=== PATIENT | female | born 1980 | race Caucasian/White ===

== ENCOUNTER 2017-07-19 07:43 | Outpatient (CLI) | payer OTHER ==
[2017-07-19 08:27] LABS: BASOPHILS % (AUTO) 0.5 %; EOSINOPHILS # (AUTO) 0.2 10^3/uL (0.0-0.7); EOSINOPHILS % (AUTO) 3.6 %; HCT - HEMATOCRIT 35.3 % (37.0-47.0); HGB - HEMOGLOBIN 12.2 g/dL (12.0-16.0); LYMPHOCYTES # (AUTO) 1.6 10^3/uL (1.5-3.5); LYMPHOCYTES % (AUTO) 27.1 %; MEAN CORPUSCULAR HEMOGLOBIN 30.8 pg (27.0-31.0); MEAN CORPUSCULAR HGB CONC 34.6 g/dL (32.0-36.0); MEAN CORPUSCULAR VOLUME 89.1 fL (81.0-99.0); MEAN PLATELET VOLUME 7.6 fL (7.9-10.8); MONOCYTES # (AUTO) 0.6 10^3/uL (0.0-1.0); MONOCYTES % (AUTO) 10.4 %; NEUTROPHILS # (AUTO) 3.4 10^3/uL (1.5-6.6); NEUTROPHILS % (AUTO) 58.4 %; RED BLOOD COUNT 3.97 10^6/uL (4.20-5.40); UNCORRECTED WHITE BLOOD COUNT 5.9 x10^3/uL; WHITE BLOOD COUNT 5.9 x10^3/uL (4.8-10.8)
[2017-07-19 10:16] LABS: ALBUMIN/GLOBULIN RATIO 1.4 (1.0-2.2); BILIRUBIN,TOTAL 0.5 mg/dL (0.2-1.0); BUN - BLOOD UREA NITROGEN 15 mg/dL (6-20); CALCIUM 9.3 mg/dL (8.5-10.3); CARBON DIOXIDE - CO2 24 mmol/L (21-32); CHLORIDE 103 mmol/L (101-111); CHOL/HDL RATIO 2.2 (<4.4); CHOLESTEROL 167 mg/dL; GFR - MDRD 62 (>89); GLUCOSE 103 mg/dL (70-100); HDL CHOLESTEROL 75 mg/dL; POTASSIUM 3.7 mmol/L (3.5-5.0); SODIUM 137 mmol/L (135-145); TOTAL PROTEIN 7.4 g/dL (6.7-8.2); TRIGLYCERIDES 83 mg/dL; VLDL CHOLESTEROL 17 mg/dL
== END 2017-07-19 07:44 | disposition home or self-care (01) ==
LOC: LAB 07:43
PROVIDERS: ATTEND Family Medicine
DX: Z00.00 Encounter for general adult medical examination without abnormal findings (principal)
CPT/HCPCS: 36415; 80053; 80061; 84443; 85025

== ENCOUNTER 2017-10-04 14:50 | Outpatient (CLI) | payer OTHER | END 2017-10-04 14:51 | disposition home or self-care (01) | LOC: LAB.WCP 14:50 | PROVIDERS: ATTEND Family Medicine | DX: B97.89 Other viral agents as the cause of diseases classified elsewhere (principal) | CPT/HCPCS: 87275; 87276 ==

== ENCOUNTER 2018-02-07 11:42 | Emergency (ER) | payer OTHER ==
[2018-02-07 12:16] LABS: BILIRUBIN,URINE NEGATIVE (NEGATIVE); GLUCOSE, URINE (UA) NEGATIVE (NEGATIVE); KETONES,URINE (UA) NEGATIVE (NEGATIVE); LEUKOCYTE ESTERASE, URINE NEGATIVE (NEGATIVE); NITRITE,URINE NEGATIVE (NEGATIVE); OCCULT BLOOD,URINE NEGATIVE (NEGATIVE); PROTEIN,URINE NEGATIVE (NEGATIVE); UROBILINOGEN,URINE 0.2 (NORMAL) E.U./dL (NORMAL)
[2018-02-07 12:17] LABS: CLARITY,URINE CLEAR (CLEAR)
[2018-02-07 12:18] LABS: HCG UR QUAL NEGATIVE
--- NOTE | 2018-02-07 12:48 | ED Physician Documentation ---
PD HPI ABD PAIN - Stated complaint Stated Complaint: ABD PX - Chief complaint Chief Complaint: Abd Pain - History obtained from History obtained from: Patient - History of Present Illness Timing - onset: Enter time (399), Today Timing - duration: Hours Timing - details: Abrupt onset, Still present Quality: Cramping, Sharp, Pain Location: LLQ Radiation: Lower back Improved by: Laying still Worsened by: Moving, Position, Palpation Associated symptoms: Nausea, Vomiting, Diarrhea Similar symptoms before: No diagnosis Recently seen: Not recently seen - Additional information Additional information: 37-year-old female awoke at 4:00 this morning with acute left lower quadrant abdominal pain and cramping. She developed acute diarrhea and has been to the bathroom 8 times today. She has had some vomiting as well. She did have something similar to this happen about 1 month ago about a week after her menstrual period. She does not have a history of inflammatory bowel disease and she does not think she has any type of food poisoning. She had fish and chips for dinner last night, everybody else had the same thing and are all well. Review of Systems Constitutional: denies: Fever Eyes: denies: Decreased vision Ears: denies: Ear pain Nose: denies: Congestion Throat: denies: Sore throat Cardiac: denies: Chest pain / pressure, Palpitations Respiratory: denies: Dyspnea, Cough GI: reports: Abdominal Pain, Nausea, Vomiting, Diarrhea : denies: Dysuria, Frequency Skin: denies: Rash PD PAST MEDICAL HISTORY - Past Medical History Past Medical History: Yes Psych: Anxiety - Past Surgical History Past Surgical History: Yes General: Colonoscopy - Present Medications Home Medications: Ambulatory Orders Medication Instructions Recorded Confirmed Williams's Wart 1 tab 02/07/18 - Allergies Allergies/Adverse Reactions: Allergies Allergy/AdvReac Type Severity Reaction Status Date / Time Penicillins Allergy Hallucinati Verified 02/07/18 12:02 ons - Social History Does the pt smoke?: No Smoking Status: Never smoker Does the pt drink ETOH?: No Does the pt have substance abuse?: No - Immunizations Immunizations are current?: No - POLST Patient has POLST: No PD ED PE NORMAL - Vitals Vital signs reviewed: Yes (normal ) - General General: Alert and oriented X 3, Well developed/nourished - HEENT HEENT: Atraumatic, PERRL, EOMI - Neck Neck: Supple, no meningeal sign, No bony TTP - Cardiac Cardiac: RRR, No murmur - Respiratory Respiratory: No respiratory distress, Clear bilaterally - Abdomen Abdomen: Soft, Other (tender generally with some gaurding and specific left lower quadrant tenderness with guarding. ) - Back Back: No CVA TTP, No spinal TTP - Derm Derm: Normal color, Warm and dry, No rash - Extremities Extremities: No deformity, No edema - Neuro Neuro: Alert and oriented X 3, No motor deficit, No sensory deficit, Normal speech Eye Opening: Spontaneous Motor: Obeys Commands Verbal: Oriented GCS Score: 15 - Psych Psych: Normal mood, Normal affect Results - Vitals Vitals: Vital Signs - 24 hr 02/07/18 12:00 Temperature 35.8 C L Heart Rate 64 Respiratory 18 Rate Blood Pressure 124/87 H O2 Saturation 100 Oxygen O2 Source Room air - Labs Labs: Laboratory Tests 02/07/18 02/07/18 02/07/18 12:12 12:55 12:55 WBC 11.5 H RBC 4.50 Hgb 13.8 Hct 41.0 MCV 91.1 MCH 30.6 MCHC 33.6 RDW 12.9 Plt Count 283 MPV 7.5 L Neut # (Auto) 9.9 H Lymph # (Auto) 0.9 L Parmer # (Auto) 0.6 Eos # (Auto) 0.1 Baso # (Auto) 0.0 Absolute Nucleated RBC 0.00 Nucleated RBC % 0.0 Sodium 133 L Potassium 3.9 Chloride 98 L Carbon Dioxide 27 Anion Gap 8.0 BUN 13 Creatinine 0.8 Estimated GFR (MDRD) 80 L Glucose 106 H Calcium 9.8 Total Bilirubin 0.7 AST 32 ALT 30 Alkaline Phosphatase 47 Total Protein 8.6 H Albumin 4.9 Globulin 3.7 Albumin/Globulin Ratio 1.3 Lipase 28 Urine Color YELLOW Urine Clarity CLEAR Urine pH 6.0 Ur Specific Oakley 1.020 Urine Protein NEGATIVE Urine Glucose (UA) NEGATIVE Urine Ketones NEGATIVE Urine Occult Blood NEGATIVE Urine Nitrite NEGATIVE Urine Bilirubin NEGATIVE Urine Urobilinogen 0.2 (NORMAL) Ur Leukocyte Esterase NEGATIVE Ur Microscopic Review NOT INDICATED Urine Culture Comments NOT INDICATED Urine HCG, Qual NEGATIVE - Rads (name of study) CT abd/pel with Radiology: Prelim report reviewed (Impression: Negative CT abdomen and pelvis without findings to explain left-sided pain.), EMP read indepedently, See rad report PD MEDICAL DECISION MAKING - ED course Complexity details: reviewed old records, reviewed results, re-evaluated patient , considered differential, d/w patient, d/w family ED course: 37-year-old female with acute onset of diarrheal illness this morning with severe cramping has improvement with use of Toradol intravenously and she has not had any further diarrhea out. She has been hydrated and CT scan of the abdomen and pelvis is without specific findings. I did discuss with the patient the possibility of inflammatory bowel disease and his presentation with continued diarrhea and bleeding. - Sepsis Event Vital Signs: Vital Signs - 24 hr 02/07/18 12:00 Temperature 35.8 C L Heart Rate 64 Respiratory 18 Rate Blood Pressure 124/87 H O2 Saturation 100 Oxygen O2 Source Room air Departure - Departure Disposition: 01 Home, Self Care Clinical Impression: Diarrhea Qualifiers: Diarrhea type: unspecified type Qualified Code(s): R19.7 - Diarrhea, unspecified Condition: Stable Instructions: ED Diet Vomiting Diarrhea Follow-Up: Rossi Tolentino MD [Primary Care Provider] -
[2018-02-07] MEDS ORDERED: SODIUM CHLORIDE 0.9% 1,000 ML IV ONE (12:50)
[2018-02-07] MEDS ORDERED: ONDANSETRON 4 MG/2 ML VIAL IVP STA (12:50)
[2018-02-07] MEDS ORDERED: KETOROLAC 60 MG/2 ML VIAL IVP STA (12:50)
[2018-02-07 13:04] LABS: BASOPHILS % (AUTO) 0.4 %; EOSINOPHILS # (AUTO) 0.1 10^3/uL (0.0-0.7); EOSINOPHILS % (AUTO) 0.4 %; HGB - HEMOGLOBIN 13.8 g/dL (12.0-16.0); LYMPHOCYTES # (AUTO) 0.9 10^3/uL (1.5-3.5); LYMPHOCYTES % (AUTO) 7.9 %; MEAN CORPUSCULAR HEMOGLOBIN 30.6 pg (27.0-31.0); MEAN CORPUSCULAR HGB CONC 33.6 g/dL (32.0-36.0); MEAN CORPUSCULAR VOLUME 91.1 fL (81.0-99.0); MEAN PLATELET VOLUME 7.5 fL (7.9-10.8); MONOCYTES # (AUTO) 0.6 10^3/uL (0.0-1.0); MONOCYTES % (AUTO) 5.3 %; NEUTROPHILS # (AUTO) 9.9 10^3/uL (1.5-6.6); PLT - PLATELET COUNT 283 10^3/uL (130-450); RED CELL DISTRIBUTION WIDTH 12.9 % (12.0-15.0); WHITE BLOOD COUNT 11.5 x10^3/uL (4.8-10.8)
[2018-02-07 13:19] LABS: ALBUMIN 4.9 g/dL (3.2-5.5); ALBUMIN/GLOBULIN RATIO 1.3 (1.0-2.2); BILIRUBIN,TOTAL 0.7 mg/dL (0.2-1.0); CALCIUM 9.8 mg/dL (8.5-10.3); CREATININE 0.8 mg/dL (0.4-1.0); TOTAL PROTEIN 8.6 g/dL (6.7-8.2)
[2018-02-07] MEDS ORDERED: IOPAMIDOL-300 100 ML VIAL ONE (13:24)
--- NOTE | 2018-02-07 13:52 | CT Report ---
Procedure Date: 02/07/2018 Accession Number: [id number] / [id number] Procedure: CT - Abdomen/Pelvis W/ CPT Code: FULL RESULT: EXAM: CT ABDOMEN AND PELVIS EXAM DATE: 02/07/2018 01:39 PM. CLINICAL HISTORY: LLQ abdominal pain. COMPARISONS: None. TECHNIQUE: Routine helical CT imaging was performed through the abdomen and pelvis. IV contrast: ISOVUE 300 100mL. Enteric contrast: No. Reconstructions: Coronal and sagittal. In accordance with CT protocol optimization, one or more of the following dose reduction techniques were utilized for this exam: automated exposure control, adjustment of mA and/or KV based on patient size, or use of iterative reconstructive technique. FINDINGS: Lung Bases: Unremarkable. Liver: Minimal focal fatty infiltration in the medial left lobe adjacent to the fissure for the ligamentum teres. Otherwise normal. Gallbladder/Bile Ducts: Unremarkable. Spleen: Normal. Pancreas: Normal. Adrenal Glands: Normal. Kidneys: 1.7 cm simple cyst posterior lower pole left kidney. 0.5 cm hypodensity in the medial upper pole left renal cortex which may represent scar. Right kidney unremarkable. No hydronephrosis. Peritoneal Cavity/Bowel: Unopacified stomach and small bowel are nondistended. The appendix is not clearly identified. There is a small amount of formed stool in the colon. No discrete colonic diverticula are identified. There is no chicho colonic wall thickening. There is no pericolonic fat stranding. There is no lymphadenopathy, ascites, or pneumoperitoneum. Pelvic Organs: Small volume bladder. Anteverted uterus normal in size. There is a 1.6 cm ringlike density suggesting a corpus luteum in the right adnexa. Left adnexa is unremarkable. Vasculature: Multiple bilateral pelvic phleboliths. Otherwise unremarkable. Bones: No significant abnormality. Other: Abdominal wall unremarkable. IMPRESSION: Negative CT abdomen and pelvis without findings to explain left-sided pain. RADIA
[2018-02-07 15:18] VITALS: BP 124/78
[2018-02-07] MEDS ORDERED: IOPAMIDOL-300 100 ML VIAL IVP ONE (16:07)
== END 2018-02-07 15:33 | disposition home or self-care (01) ==
LOC: ED 11:42
DX: R19.7 Diarrhea, unspecified (principal); R10.32 Left lower quadrant pain; R11.2 Nausea with vomiting, unspecified
CPT/HCPCS: 36415; 74177; 80053; 81003; 81025; 83690; 85025; 96361; 96374; 96375; 99283; Q9967; 81001; 87086

== ENCOUNTER 2018-02-08 04:12 | Emergency (ER) | payer OTHER ==
[2018-02-08] MEDS ORDERED: ONDANSETRON 4 MG/2 ML VIAL IVP STA (04:21)
[2018-02-08] MEDS ORDERED: SODIUM CHLORIDE 0.9% 1,000 ML IV ONE (04:21)
[2018-02-08] MEDS ORDERED: PANTOPRAZOLE 40 MG VIAL IVP STA (04:22)
[2018-02-08] MEDS ORDERED: KETOROLAC 60 MG/2 ML VIAL IVP STA (04:22)
--- NOTE | 2018-02-08 04:34 | ED Physician Documentation ---
PD HPI ABD PAIN - Stated complaint Stated Complaint: VOMITING/ABD PX - Chief complaint Chief Complaint: Abd Pain - History obtained from History obtained from: Patient, Family - History of Present Illness Timing - onset: Yesterday Timing - details: Abrupt onset, Still present Quality: Cramping, Aching, Sharp Location: All over / everywhere Associated symptoms: Nausea, Vomiting, Diarrhea. No: Fever Similar symptoms before: Work up / diagnostics Recently seen: Emergency Dept - Additional information Additional information: Patient is a 37 year old female with no significant past medical history who is presenting to the emergency department for nausea, vomiting and abdominal pain. two days ago patient ate fish and chips and woke up the next day with gastritis. patient was seen in the emergency department at that time. Diagnostics were within normal limits including CT. patient states that her symptoms have persisted so she returned to the emergency department for evaluation. Review of Systems Constitutional: denies: Fever, Chills GI: reports: Abdominal Pain, Nausea, Vomiting, Diarrhea : denies: Dysuria, Frequency, Hesitancy Immunocompromised: denies: Immunocompromised PD PAST MEDICAL HISTORY - Past Medical History Past Medical History: Yes Psych: Anxiety - Past Surgical History Past Surgical History: Yes General: Colonoscopy /[employer]: section - Present Medications Home Medications: Ambulatory Orders Medication Instructions Recorded Confirmed Williams's Wart 1 tab 02/07/18 Dicyclomine [Bentyl] 10 mg PO QID #20 capsule 02/08/18 Ondansetron Odt [Zofran] 4 mg TL Q6H PRN #14 tablet 02/08/18 Promethazine [Phenergan] 25 - 50 mg PO Q6H PRN #10 tab 02/08/18 - Allergies Allergies/Adverse Reactions: Allergies Allergy/AdvReac Type Severity Reaction Status Date / Time codeine Allergy Hallucinati Verified 02/08/18 04:23 ons Penicillins Allergy Hives Verified 02/08/18 04:23 - Social History Does the pt smoke?: No Smoking Status: Never smoker Does the pt drink ETOH?: No Does the pt have substance abuse?: No - Immunizations Immunizations are current?: No - POLST Patient has POLST: No PD ED PE NORMAL - Vitals Vital signs reviewed: Yes - General General: Alert and oriented X 3, No acute distress - HEENT HEENT: Atraumatic, PERRL - Neck Neck: Supple, no meningeal sign - Cardiac Cardiac: RRR - Respiratory Respiratory: No respiratory distress - Abdomen Abdomen: Soft - Derm Derm: Normal color, Warm and dry, No rash - Extremities Extremities: No deformity - Neuro Neuro: Alert and oriented X 3, No motor deficit Eye Opening: Spontaneous PD ED PE EXPANDED - Abdomen Abdomen: Decreased BS, Tender to palpation, Generalized/diffuse. No: Rebound, Guarding Results - Vitals Vitals: Oxygen O2 Source Room air - Labs Labs: Laboratory Tests 02/08/18 02/08/18 04:30 04:30 WBC 16.6 H RBC 4.17 L Hgb 12.8 Hct 37.5 MCV 90.0 MCH 30.7 MCHC 34.1 RDW 13.0 Plt Count 259 MPV 7.8 L Neut # (Auto) 14.8 H Lymph # (Auto) 0.6 L Quay # (Auto) 1.2 H Eos # (Auto) 0.0 Baso # (Auto) 0.1 Absolute Nucleated RBC 0.00 Nucleated RBC % 0.0 Sodium 136 Potassium 4.0 Chloride 102 Carbon Dioxide 25 Anion Gap 9.0 BUN 9 Creatinine 0.8 Estimated GFR (MDRD) 80 L Glucose 129 H Calcium 9.5 Phosphorus 3.1 Magnesium 2.1 Total Bilirubin 1.2 H AST 24 ALT 25 Alkaline Phosphatase 41 L Total Protein 7.8 Albumin 4.4 Globulin 3.4 Albumin/Globulin Ratio 1.3 Lipase 42 - Rads (name of study) abd series Radiology: Final report received (within normal limits) PD MEDICAL DECISION MAKING - ED course Complexity details: reviewed old records, reviewed results, re-evaluated patient , considered differential, d/w patient, d/w family ED course: Patient was seen and examined at bedside. Patient's vital signs were within normal limits. patient was treated with a fluid bolus, toradol, zofran and pepcid. patient's previous results were reviewed and they were within normal limits including CT. patient had decreased bowel sounds so abdominal series was ordered and was within normal limits. Patient had no episodes of emesis while in the emergency department and was stable for discharge with outpatient followup. - Sepsis Event Vital Signs: Oxygen O2 Source Room air Departure - Departure Disposition: 01 Home, Self Care Clinical Impression: Gastroenteritis Condition: Good Instructions: ED Gastroenteritis Bacterial Follow-Up: Rossi Tolentino MD [Primary Care Provider] - Prescriptions: Dicyclomine [Bentyl] 10 mg PO QID #20 capsule Ondansetron Odt [Zofran] 4 mg TL Q6H PRN #14 tablet PRN Reason: Nausea / Vomiting Promethazine [Phenergan] 25 - 50 mg PO Q6H PRN #10 tab PRN Reason: Nausea / Vomiting Comments: Your diagnostics today were within normal limits. Your symptoms are likely secondary to food poisoning. there is no sign of significant dehydration or electrolyte imbalance. You should take the zofran and phenegran for nausea. you can take motrin or tylenol for pain and bentyl for spasm. you should follow up with your doctor if your symptoms last for more than the next few days. You may return to the emergency department at any time for new, worsening or uncontrollable symptoms. Discharge Date/Time: 02/08/18 06:22
[2018-02-08 04:40] LABS: BASOPHILS # (AUTO) 0.1 10^3/uL (0.0-0.1); BASOPHILS % (AUTO) 0.7 %; EOSINOPHILS % (AUTO) 0.1 %; HGB - HEMOGLOBIN 12.8 g/dL (12.0-16.0); LYMPHOCYTES # (AUTO) 0.6 10^3/uL (1.5-3.5); LYMPHOCYTES % (AUTO) 3.4 %; MEAN CORPUSCULAR HEMOGLOBIN 30.7 pg (27.0-31.0); MEAN CORPUSCULAR HGB CONC 34.1 g/dL (32.0-36.0); MEAN PLATELET VOLUME 7.8 fL (7.9-10.8); MONOCYTES # (AUTO) 1.2 10^3/uL (0.0-1.0); NEUTROPHILS # (AUTO) 14.8 10^3/uL (1.5-6.6); NEUTROPHILS % (AUTO) 88.8 %; PLT - PLATELET COUNT 259 10^3/uL (130-450); RED BLOOD COUNT 4.17 10^6/uL (4.20-5.40); WHITE BLOOD COUNT 16.6 x10^3/uL (4.8-10.8)
[2018-02-08 04:53] LABS: ALBUMIN 4.4 g/dL (3.2-5.5); ALBUMIN/GLOBULIN RATIO 1.3 (1.0-2.2); BILIRUBIN,TOTAL 1.2 mg/dL (0.2-1.0); CALCIUM 9.5 mg/dL (8.5-10.3); CREATININE 0.8 mg/dL (0.4-1.0); MAGNESIUM 2.1 mg/dL (1.7-2.8); PHOSPHORUS 3.1 mg/dL (2.5-4.6); TOTAL PROTEIN 7.8 g/dL (6.7-8.2)
--- NOTE | 2018-02-08 05:39 | XRAY Report ---
Procedure Date: 02/08/2018 Accession Number: [id number] / [id number] Procedure: XR - Abdomen Acute CPT Code: FULL RESULT: EXAM: ABDOMINAL SERIES AND PA CHEST EXAM DATE: 02/08/2018 05:06 AM. CLINICAL HISTORY: Diffuse abdominal pain. COMPARISON: None. TECHNIQUE: 2 views abdomen and 1 view chest. FINDINGS: CHEST: Lungs/Pleura: No alveolar consolidation or pleural effusion seen. No pneumothorax. Mediastinum: Within exam limitations, cardiomediastinal contour is normal. ABDOMEN: Bowel Gas Pattern: No dilated loops or abnormal air-fluid levels. Moderate stool in the colon. Free Air: None. Other: Excreted contrast in the urinary bladder. IMPRESSION: 1. Normal gas pattern with moderate stool in the colon. 2. No acute abnormality seen. RADIA
[2018-02-08 05:46] VITALS: BP 103/58
[2018-02-08] MEDS ORDERED: DICYCLOMINE 10 MG CAPSULE PO STA (06:06)
== END 2018-02-08 06:22 | disposition home or self-care (01) ==
LOC: ED 04:12
DX: K52.9 Noninfective gastroenteritis and colitis, unspecified (principal)
CPT/HCPCS: 36415; 74022; 80053; 83690; 83735; 84100; 85025; 96361; 96374; 96375; 99283; A9270

== ENCOUNTER 2018-02-22 19:54 | Outpatient (CLI) | payer OTHER ==
--- NOTE | 2018-02-23 09:14 | Ultrasound Report ---
Procedure Date: 02/22/2018 Accession Number: [id number] / [id number] Procedure: US - Pelvic w/Transvaginal CPT Code: FULL RESULT: EXAM: Pelvic w/Transvaginal DATE: 02/22/2018 8:38 PM CLINICAL HISTORY: PELVIC PAIN COMPARISON: CT 02/07/2018 TECHNIQUE: Realtime transabdominal imaging performed to identify the uterus and adnexa and as an overview of other pelvic structures, followed by transvaginal imaging for better assessment of the endometrium and/or adnexa, with static image documentation. FINDINGS: Uterus: 8.1 x 4.7 x 3.7 cm, volume 74 cc. Anteverted position. Normal overall size and echotexture. Masses: None. Endometrium: 9 mm. There is an echogenic nodule, measuring 9 x 7 x 6 mm, in the endometrial canal, suspicious for a polyp. Cervix: Unremarkable. Right Ovary/Adnexa: 3.5 x 2.4 x 2.4 cm, volume 11 cc. Normal echotexture. Blood flow is present. No adnexal mass is seen. Left Ovary/Adnexa: 3.1 x 2.2 x 2.0 cm, volume 7 cc. Normal echotexture. Blood flow is present. No adnexal mass is seen. Free Fluid: None. Other: None. IMPRESSION: Echogenic 9 mm nodule in the endometrial canal, suspicious for an endometrial polyp. RADIA
== END 2018-02-22 19:55 | disposition home or self-care (01) ==
LOC: DI 19:54
PROVIDERS: ATTEND Family Medicine
DX: N85.9 Noninflammatory disorder of uterus, unspecified (principal)
CPT/HCPCS: 76830; 76856

== ENCOUNTER 2018-04-03 08:00 | Outpatient (CLI) | payer OTHER | END 2018-04-03 23:59 | LOC: LAB.R 08:00 | PROVIDERS: ATTEND Obstetrics & Gynecology | DX: Z11.3 Encounter for screening for infections with a predominantly sexual mode of transmission (principal) | CPT/HCPCS: 87491; 87591 ==

== ENCOUNTER 2018-08-07 09:09 | Outpatient (CLI) | payer OTHER ==
--- NOTE | 2018-08-07 11:19 | Mammography Report ---
Reason: BREAST LUMP Procedure Date: 08/07/2018 Accession Number: [id number] / [id number] Procedure: [facility] - Diagnostic Dig Bilat CPT Code: FULL RESULT: EXAM: Diagnostic Dig Bilat DATE: 08/07/2018 9:58 AM CLINICAL HISTORY: Diagnostic examination. Small palpable right breast lump which the patient has been feeling for one to 2 months. TECHNIQUE: Bilateral CC and MLO views were obtained and 2-D and 3-D mammographic technique. Targeted right breast ultrasound of the area of interest was also performed. COMPARISON: Baseline exam. FINDINGS: The breasts demonstrate heterogeneously dense fibroglandular parenchyma bilaterally. No mammographic finding is made in the right breast marked with a palpable marker to correspond to the patient's palpable area. Focused breast ultrasound revealed normal breast tissue. No suspicious calcifications, masses or architectural distortion is identified. IMPRESSION: Negative examination RECOMMENDATION: Recommend routine annual Screening mammography unless otherwise clinically indicated. BIRADS CATEGORY 1: Negative STANDARD QUALIFYING STATEMENTS: 1. This examination was not reviewed with the aid of Computer-Aided Detection (CAD). 2. A negative or benign imaging report should not delay biopsy if clinically suspicious findings are present. Consider surgical consultation if warrented. More than 5% of cancers are not identified by imaging. 3. Dense breasts may obscure an underlying neoplasm. 4. This examination was reviewed with the aid of 3D imaging (tomography).
== END 2018-08-07 09:10 | disposition home or self-care (01) ==
LOC: DI 09:09
PROVIDERS: ATTEND Nurse Practitioner
DX: N63.10 Unspecified lump in the right breast, unspecified quadrant (principal)
CPT/HCPCS: 76642; 77066

== ENCOUNTER 2018-08-10 08:29 | Outpatient (CLI) | payer OTHER ==
[2018-08-10 08:44] LABS: BASOPHILS % (AUTO) 0.6 %; EOSINOPHILS # (AUTO) 0.2 10^3/uL (0.0-0.7); EOSINOPHILS % (AUTO) 3.7 %; HGB - HEMOGLOBIN 12.9 g/dL (12.0-16.0); LYMPHOCYTES # (AUTO) 1.4 10^3/uL (1.5-3.5); LYMPHOCYTES % (AUTO) 25.7 %; MEAN CORPUSCULAR HEMOGLOBIN 30.4 pg (27.0-31.0); MEAN CORPUSCULAR HGB CONC 34.6 g/dL (32.0-36.0); MEAN CORPUSCULAR VOLUME 87.9 fL (81.0-99.0); MEAN PLATELET VOLUME 7.6 fL (7.9-10.8); MONOCYTES # (AUTO) 0.6 10^3/uL (0.0-1.0); MONOCYTES % (AUTO) 10.8 %; NEUTROPHILS # (AUTO) 3.3 10^3/uL (1.5-6.6); NEUTROPHILS % (AUTO) 59.2 %; PLT - PLATELET COUNT 270 10^3/uL (130-450); RED BLOOD COUNT 4.26 10^6/uL (4.20-5.40); RED CELL DISTRIBUTION WIDTH 13.1 % (12.0-15.0); WHITE BLOOD COUNT 5.6 x10^3/uL (4.8-10.8)
[2018-08-10 09:07] LABS: ALBUMIN 4.8 g/dL (3.2-5.5); ALBUMIN/GLOBULIN RATIO 1.4 (1.0-2.2); ALKALINE PHOSPHATASE 58 IU/L (42-121); ALT ALANINE AMINOTRANSFERASE 18 IU/L (10-60); AST ASPARTATE AMINOTRANSFERASE 23 IU/L (10-42); BILIRUBIN,TOTAL 0.6 mg/dL (0.2-1.0); BUN - BLOOD UREA NITROGEN 16 mg/dL (6-20); CALCIUM 9.4 mg/dL (8.5-10.3); CARBON DIOXIDE - CO2 24 mmol/L (21-32); CHLORIDE 105 mmol/L (101-111); CHOL/HDL RATIO 2.1 (<4.4); CHOLESTEROL 176 mg/dL; CREATININE 0.8 mg/dL (0.4-1.0); GFR - MDRD 79 (>89); GLUCOSE 100 mg/dL (70-100); HDL CHOLESTEROL 83 mg/dL; LDL CHOLESTEROL,CALCULATED 77 mg/dL; LDL/HDL RATIO 0.9 (<4.4); SODIUM 135 mmol/L (135-145); TOTAL PROTEIN 8.2 g/dL (6.7-8.2); VLDL CHOLESTEROL 16 mg/dL
== END 2018-08-10 08:30 | disposition home or self-care (01) ==
LOC: LAB 08:29
PROVIDERS: ATTEND Family Medicine
DX: Z00.00 Encounter for general adult medical examination without abnormal findings (principal); F41.8 Other specified anxiety disorders
CPT/HCPCS: 36415; 80053; 80061; 83721; 84443; 85025